=== PATIENT | female | born 1940 ===

== ENCOUNTER → 2018-04-27 13:07 | Outpatient (CLI) | payer MEDICARE ==
[2018-04-27 14:02] LABS: APPEARANCE CLEAR (CLEAR); BILIRUBIN NEGATIVE (NEGATIVE); COLOR DK YELLOW (YELLOW); EPITHELIAL CELLS 0-5 /hpf (0-5); GLUCOSE 50 mg/dL (NEGATIVE); KETONE NEGATIVE (NEGATIVE); NITRITE NEGATIVE (NEGATIVE); PROTEIN TRACE mg/dL (NEGATIVE); RED CELLS - URINE NONE SEEN /hpf (0-5); UROBILINOGEN NORMAL (NORMAL); WHITE CELLS - URINE 0-5 /hpf (0-5)
== END | disposition home or self-care (01) ==
LOC: D.LABREF 13:07
PROVIDERS: Family Medicine Adult Medicine
DX: Z48.812 Encounter for surgical aftercare following surgery on the circulatory system (principal)

== ENCOUNTER 2018-09-04 19:00 | Outpatient (CLI) | payer MEDICARE, OTHER | END 2018-09-04 23:59 | disposition home or self-care (01) | LOC: D.MAMMO 19:00 | PROVIDERS: ATTEND Family Medicine Adult Medicine | DX: N63.11 Unspecified lump in the right breast, upper outer quadrant (principal) ==